=== PATIENT | female | born 1970 | race Caucasian/White ===

== ENCOUNTER → 2020-12-26 | Outpatient (CLI) | payer OTHER ==
[~2020-12-26] MED LIST: IBUP-1060 PO
== END ==
LOC: LAB 09:50
PROVIDERS: ATTEND Surgery
DX: Z01.812 Encounter for preprocedural laboratory examination (principal); K80.10 Calculus of gallbladder with chronic cholecystitis without obstruction; Z20.822 Contact with and (suspected) exposure to COVID-19
CPT/HCPCS: U0003; U0005

== ENCOUNTER 2020-12-28 09:21 | Day surgery (SDC) | payer OTHER ==
[~2020-12-28] VITALS: Ht 162.6 cm; Wt 113.8 kg
[~2020-12-28 09:21] MED LIST changes: +HYDROmorphone 2 MG/ML VIAL IVP PRN; -IBUP-1060 PO; +MORPHINE SULFATE 2 MG/ML VIAL. IVP PRN; +PROCHLORPERAZINE 10 MG/2 ML VIAL. IVP PRN; +fentaNYL PF VIAL 100 MCG/2 ML VIAL IVP PRN
[2020-12-28] MEDS ORDERED: ONDANSETRON PF 4 MG/2 ML VIAL. ONE (09:55)
[2020-12-28] MEDS ORDERED: SUCCINYLCHOLINE 200 MG/10 ML VIAL. ONE (09:55)
[2020-12-28] MEDS ORDERED: DEXAMETHASONE SOD PHOS 4 MG/ML VIAL ONE (09:55)
[2020-12-28] MEDS ORDERED: LIDOCAINE 2% PF 5 ML VIAL. ONE (09:55)
[2020-12-28] MEDS ORDERED: PROPOFOL 10 MG/ML (20ML) VIAL. IV ONE (09:55)
[2020-12-28] MEDS ORDERED: MIDAZOLAM HCL/PF 2 MG/2 ML VIAL. ONE (09:56)
[2020-12-28] MEDS ORDERED: ROCURONIUM 50 MG/5 ML VIAL. ONE (09:56)
[2020-12-28] MEDS ORDERED: fentaNYL PF VIAL 100 MCG/2 ML VIAL ONE ×2 (09:56→11:46)
[2020-12-28] MEDS ORDERED: BUPIVACAINE-EPI 0.25% 30 ML VIAL KIT. ONE (10:00)
[2020-12-28] MEDS ORDERED: IOHEXOL 300 MG/ML 50 ML VIAL. ONE (10:00)
[2020-12-28] MEDS ORDERED: SURGICEL HEMOSTAT 4X8 EACH. ONE (10:00)
[2020-12-28] MEDS: IV RINGERS,LACTATED 1000ML 1,000 ML IV SCH ×2 (10:03→11:57)
[2020-12-28] MEDS ORDERED: NEOSTIGMINE METHYLSULFATE 5 MG/5 ML SYRINGE. ONE (11:20)
[2020-12-28] MEDS ORDERED: GLYCOPYRROLATE 1 MG/5 ML VIAL. ONE (11:20)
--- NOTE | 2020-12-28 11:26 | PDOC4 ---
Operative Note Operative Note Date: December 282020 1124 Preoperative diagnosis: Chronic cholecystitis cholelithiasis Postoperative diagnosis: Same Procedure: Laparoscopic cholecystectomy Surgeon: Mikey Specimen: Gallbladder Dictation: Patient is a 50-year-old female was recently in the emergency department with right upper quadrant abdominal pain ultrasound showing gallstones and mildly thickened gallbladder wall. Procedure of laparoscopic cholecystectomy was explained to the patient detail risk benefits were also discussed including bleeding infection injury to intra-abdominal contents possible necessitating further open operations alternatives to this procedure also discussed with the patient who seemed to understand and gave both verbal and written consent to have the procedure performed. Patient was taken to the operating room placed in supine position general anesthesia was initiated once patient was sleeping intubated her abdomen was prepped and draped usual sterile fashion using ChloraPrep. Area just below the umbilicus was injected with quarter percent Marcaine with epinephrine incision was made 11 blade scalpel and a varies needle was placed within the abdomen creating pneumoperitoneum once this was complete the millimeter port was placed and a 5 mm camera is placed within the abdomen which is appear to be normal no other abnormalities other th an a edematous gallbladder. 5 mm port was placed in the epigastrium a 5 mm port was placed in the right midabdomen and a 5 mm port was placed in the right lateral abdomen. The dome of the gallbladder was grasped retracted cephalad the infundibulum of the gallbladder is grasped tract laterally exposing the triangle adherent tissues of the triangle were taken down with blunt dissection exposing the cystic duct and cystic artery both were doubly clipped and transected the gallbladder was taken off the liver with hook electrocautery placed in the Endo Catch bag removed and the umbilicus the right upper quadrant is irrigated and suctioned dry hemostasis deemed be appropriate the pneumoperitoneum was reduced all ports were removed the fascial defect at the umbilicus was closed with a [id number] 0 Vicryl suture and the skin was reapproximated all port sites for subcuticular Monocryl Mastisol Steri-Strips and island dressings were applied. Patient was awakened and extubated in the operating room taken to recovery in stable condition all sponge instrument needle counts listed as correct estimated blood loss 10 mL. JANE VICENTE MD Dec 28, 2020 11:26
--- NOTE | 2020-12-28 11:28 | DISCH ---
DISCHARGE INSTRUCTIONS Condition on Discharge Condition on Discharge: Stable Activity After Discharge Activity Instructions for Disc: Avoid exertion Other activity instructions: No lifting more than 20 pounds for 2 weeks Diet after Discharge Diet after Discharge: Low Fat Wound Incision Care Other wound/incision instructi: May shower in 24 hours Contacting the after DC Call your doctor for: If your condition worsens Follow-Up Follow up with: Dr. Vicente in 2 weeks JANE VICENTE MD Dec 28, 2020 11:27
[2020-12-28] MEDS ORDERED: PROCHLORPERAZINE 10 MG/2 ML VIAL. ONE (11:35)
[2020-12-28] MEDS ORDERED: MORPHINE SULFATE 2 MG/ML VIAL. ONE (11:39)
[2020-12-28] MEDS ORDERED: MORPHINE SULFATE 2 MG/ML VIAL. IV PRN (11:45)
[2020-12-28] MEDS ORDERED: PROCHLORPERAZINE 10 MG/2 ML VIAL. IV ONE (11:45)
[2020-12-28] MEDS: fentaNYL PF VIAL 100 MCG/2 ML VIAL IVP PRN ×2 (11:59→12:22)
[2020-12-28] MEDS ORDERED: IBUP-1060 PO (12:08)
[2020-12-28] MEDS ORDERED: IBUPROFEN 400 MG TABLET. PO ONE (12:45)
[2020-12-28] MEDS ORDERED: oxyCODONE/APAP 5/325 1 TAB TABLET PO ONE ×2 (13:00)
[2020-12-28 14:00] VITALS: BP 125/86
== END 2020-12-28 14:14 | disposition home or self-care (01) ==
LOC: SURG 09:21
PROVIDERS: ATTEND Surgery
DX: K80.10 Calculus of gallbladder with chronic cholecystitis without obstruction (principal); Z87.440 Personal history of urinary (tract) infections; Z98.51 Tubal ligation status; Z98.890 Other specified postprocedural states; Z79.899 Other long term (current) drug therapy; Z88.8 Allergy status to other drugs, medicaments and biological substances; Z88.5 Allergy status to narcotic agent; Z88.6 Allergy status to analgesic agent
CPT/HCPCS: 47562; 81025; 88304; A4213; A4364; A4930; A6219; J0780; J1100; J1956; J2270; J2405; J2704; J2710; J3010; J3490; A4452; A4657; J0330; J2250; Q9967